=== PATIENT | female | born 1935 | race Caucasian/White ===

== ENCOUNTER 2017-08-16 14:17 | Inpatient (IN) | payer MEDICARE, OTHER ==
[~2017-08-16] VITALS: Ht 170.2 cm; Wt 60.5 kg
--- NOTE | ~2017-08-16 | HP ---
History And Physical [place] [id number] [facility] [place]. [address] NAME: GAGE STEARNS : 35 STATUS : ADM IN [facility]#: [id number] AGE: 81 ADM/REG DATE : 08/16/17 MR#: [id number] REPORT SERV DATE: 08/16/17 DICTATED BY: CLIFF HINDS DATE: 08/16/17 REPORT STATUS : Draft TRANSCRIBED BY: MODAriel DATE: 08/16/17 DATE OF ADMISSION: 08/16/2017 HISTORY OF PRESENT ILLNESS: This is an 81-year-old female who comes in for syncope. The patient has a history of foot infections, osteomyelitis, MSSA infection, and frequent UTIs. She had a bad one in April or May of this year in [facility], and she was then sent to an assisted living. She did well until she got discharged from the assisted living last Monday. The family took her home. Since she got home, they noticed that she was having diarrhea about four to five times a day, watery, but not bloody or black. The patient was getting weaker. They were worried about urinary tract infection as they said that her urine was starting to smell bad again. She denied any dysuria in the last two days, but because of her weakness and worry about urinary tract infection, they brought her to a walk-in clinic and while she was there, the patient felt that she is going to pass out, and she did and prior to that, they noted that she was having slurring of speech, and she turned white. There was no note of any seizures. She was out for about 30 seconds and at that time they noted the blood pressure was 97/50. The patient came about after 30 seconds. There was no slurring of speech anymore. The color came back. She was a little bit disoriented at first, but she became oriented rather quickly. She was then brought here. The patient feels better now and only complains of feeling lazy and weak. She denies any pain. There was no note of any nausea and vomiting. No hematuria. No cough or shortness of breath. No chest pains, palpitations. No fever, chills, or sweats. REVIEW OF SYSTEMS: The rest of the 14-point review of systems negative except as above. PAST MEDICAL HISTORY: Includes multiple surgeries on her both feet. She denies any diabetes as what was written in the past record. She has high blood pressure, atrial fibrillation, TIA in 2000, right knee surgery, cholecystectomy, hysterectomy, questionable dementia. ALLERGIES: SHE IS ALLERGIC TO DARVON, CODEINE, AND PENICILLIN G. MEDICATIONS: Her medications include aspirin, Aricept, Synthroid, lisinopril, metoprolol. FAMILY HISTORY: Positive for diabetes. Sister with cancer. Mom with heart disease and pulmonary embolism. SOCIAL HISTORY: The patient does not smoke, drink, or use recreational drugs. PHYSICAL EXAMINATION: GENERAL: The patient is alert and oriented x3, not in cardiopulmonary distress. VITAL SIGNS: Her vital signs include a blood pressure of 139/63, temperature 97.6, pulse rate of 75, respirations 20, saturation of 95% on room air. NECK: She has supple neck. No JVD or carotid bruits. No lymphadenopathy. HEENT: [place] conjunctivae. Anicteric sclerae. No pharyngeal erythema. LUNGS: Clear lungs. No rales, no wheezes. HEART: Irregular rate and rhythm. No murmurs appreciated. History And Physical [address] [address] NAME: GAGE STEARNS : 35 STATUS : ADM IN [facility]#: [id number] AGE: 81 ADM/REG DATE : 08/16/17 MR#: [id number] REPORT SERV DATE: 08/16/17 DICTATED BY: CLIFF HINDS DATE: 08/16/17 REPORT STATUS : Draft TRANSCRIBED BY: JOSEMANUEL DATE: 08/16/17 ABDOMEN: Positive bowel sounds. Soft, nontender. No masses. EXTREMITIES: Fair pulses. No edema. 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 NEURO EXAM: Nonlocalizing. LABORATORY DATA: Reveals a chemistry within normal limits. White count of 12.9. Urinalysis reveals a cloudy specimen with greater than 182 white blood cells, rare bacteria, positive nitrites, 0 red blood cell. EKG shows atrial fibrillation at 80, normal axis, possible old anterior septal infarct. No new EKG changes. ASSESSMENT: 1. Syncope. 2. Weakness. 3. Diarrhea. 4. Possible urinary tract infection. 5. Atrial fibrillation. 6. Hypertension. 7. History of dementia. PLAN: The patient's syncope is likely vasovagal or secondary to dehydration. She has been having diarrhea and was on recent antibiotics. We will check stool for C. difficile and start empiric Flagyl. I cannot rule out a possible UTI with her dirty urine, and that is collected by straight cath. I would check for the cultures first before starting her on antibiotics again, hydrate, and we will restart her medications. This has been explained to the patient in front of the daughter in-law, cousin and his , and they agreed and understood the plan. JULIA/JOSEMANUEL Cliff Hinds M.D. / [id number] CC: Bill Barone Jr, MD Cari Beth Page, M.D.
--- NOTE | ~2017-08-16 | DS ---
Discharge Summary [facility] [address] [place]. [address] NAME: GAGE STEARNS : 35 STATUS : DIS IN PAT#: [id number] AGE: 81 ADM/REG DATE : 08/16/17 MR#: [id number] REPORT SERV DATE: 08/19/17 DICTATED BY: POOJA DOMINGUEZ DATE: 08/19/17 REPORT STATUS : Draft TRANSCRIBED BY: MODL DATE: 08/19/17 ADMISSION DATE: 08/16/2017 DISCHARGE DATE: 08/19/2017 Ms. Stearns is an 81-year-old female with a history of atrial fibrillation, hypertension, who presented to the hospital with a complaint of syncope. For further details, please refer to H and P dictated by Dr. Navarrete on 08/16/2017. HOSPITAL COURSE: Upon presentation to the hospital, the patient was admitted on the Hospitalist Service for further management, etiology of her symptoms was likely due to dehydration, status post fluid resuscitation. The patient's symptoms significantly improved. She has remained hemodynamically stable. Her urinalysis was obtained which was positive. Urine culture positive for E. coli, sensitive to Ancef/Duricef. During her course, the patient has remained hemodynamically stable and has denied any symptoms. Given that the patient has had frequent episodes of UTI, resulting similar presentation with syncope and altered mental status, even though the patient is asymptomatic, decision was made to go ahead and treat. The patient has done well and tolerated therapy well. Plan at this point will be to transition the patient from IV antibiotic therapy to cefadroxil and the discharge patient home. Plan has been discussed with the patient who voices understanding and is agreeable with this plan. DISCHARGE DIAGNOSES: 1. Urinary tract infection. 2. Atrial fibrillation. 3. Hypothyroidism. 4. Hypertension. DISCHARGE MEDICATIONS: The patient's home medications were continued with the addition of cefadroxil 2 g p.o. daily for seven days. Home medications include 1. Aspirin 325 mg p.o. daily. 2. Aricept 10 mg p.o. daily. 3. Synthroid 88 mcg p.o. daily. 4. Lisinopril 10 mg p.o. daily. 5. Metoprolol 12.5 mg p.o. twice a day. CONSULTANTS: None. DISPOSITION: The patient will be discharged home. ACTIVITY: As tolerated. DIET: Regular diet. Greater than 30 minutes spent in discharging patient. Discharge Summary [place] [address] [facility] [address] NAME: GAGE STEARNS : 35 STATUS : DIS IN PAT#: [id number] AGE: 81 ADM/REG DATE : 08/16/17 MR#: [id number] REPORT SERV DATE: 08/19/17 DICTATED BY: POOJA DOMINGUEZ DATE: 08/19/17 REPORT STATUS : Draft TRANSCRIBED BY: JOSEMANUEL DATE: 08/19/17 MOUNA/JOSEMANUEL Pooja Dominguez MD / [id number] CC: MD Nia Murguia M.D.
[~2017-08-16 14:17] MED LIST: C25 PO; COUMADIN PO; COUMADIN3 MG PO; GLUCPH PO; K500 PO; LEVOTHYROXINE PO; LISINOPRIL PO; LOP25 PO; METFORMIN PO; METOPROLOL PO; PRIN10 PO; SIMVASTATIN PO; SYN88 PO; ZOCOR20 PO
[2017-08-16 15:36] LABS: BASOPHILS 0.2 %; BASOPHILS ABSOLUTE 0.02 10/3/uL (0.0-0.16); EOSINOPHILS 0.1 %; EOSINOPHILS ABSOLUTE 0.01 10/3/uL (0.0-0.53); HEMOGLOBIN 13.3 g/dL (12.0-16.0); IMMATURE GRANULOCYTES 0.2 %; IMMATURE GRANULOCYTES ABSOLUTE 0.03 10/3/uL (0.0-0.11); LYMPHOCYTES 5.8 %; LYMPHOCYTES ABSOLUTE 0.74 10/3/uL (0.67-4.30); MEAN CORPUSCULAR HEMOGLOB 29.2 pg (26.0-34.0); MEAN PLATELET VOLUME 10.2 fL (9.2-13.0); MONOCYTES 3.8 %; MONOCYTES ABSOLUTE 0.49 10/3/uL (0.21-1.20); NEUTROPHILS 89.9 %; NEUTROPHILS ABSOLUTE 11.57 10/3/uL (2.02-8.40); PLATELET COUNT 212 10/3/uL (150-400); RBC DISTRIBUTION WIDTH 14.1 % (12.0-16.0); RED CELL COUNT 4.56 10/6/uL (4.0-5.6)
[2017-08-16 15:37] LABS: ER CBC TAT 0 Hrs 05 Mins; HEMATOCRIT 41.4 % (36.0-48.0); MANUAL DIFF NO %; MEAN CORPUS HGB CONC 32.1 g/dL (32.0-36.0); MEAN CORPUSCULAR VOLUME 90.8 fL (80-100); WHITE BLOOD CELLS 12.9 10/3/uL (4.5-10.5)
[2017-08-16 15:45] LABS: INTERNATIONAL NORMAL RATI 1.2 UNITS (-); PARTIAL THROMBO TIME 24.1 SEC (22.5-37.2); PROTIME (NOT ORD) 14.6 SEC (12.0-14.5)
[2017-08-16 15:52] LABS: ALBUMIN 3.2 G/DL (3.5-5.0); BUN (BLOOD UREA NITROGEN) 22 MG/DL (6-23); CALCIUM, SERUM 8.5 MG/DL (8.5-10.4); CHEST PAIN PROFILE TAT 0 Hrs 20 Mins; CHLORIDE, SERUM 106 MMOL/L (96-112); CREATININE 1.07 MG/DL (0.55-1.02); DIRECT BILIRUBIN 0.1 MG/DL (0.0-0.4); GFR AFRICAN AMERICAN 56 ML/MIN (>=60); GFR NON AFRICAN AMERICAN 49 ML/MIN (>=60); GLUCOSE, SERUM 113 MG/DL (60-99); INDIRECT BILIRUBIN(NOT ORDER) 0.6 MG/DL (0.1-0.9); SGOT(AST) 20 U/L (5-40); SGPT(ALT) 15 U/L (5-65); SODIUM, SERUM 142 MMOL/L (135-148); TOTAL BILIRUBIN 0.7 MG/DL (0-1.2); TOTAL PROTEIN 6.6 G/DL (6.0-8.5); TROPONIN I <0.02 NG/ML (<0.05)
[2017-08-16 15:54] LABS: ALKALINE PHOSPHATASE 87 U/L (45-117); CO2 (CARBON DIOXIDE) 28 MMOL/L (24-34); POTASSIUM, SERUM 4.1 MMOL/L (3.5-5.3)
[2017-08-16 17:18] LABS: ASCORBIC ACID (UR NOT ORDER) NEG (NEG); BILIRUBIN, URINE NEGATIVE (NEG); ER URINALYSIS TAT 0 Hrs 27 Mins; KETONE, URINE NEGATIVE (NEG); LEUKOCYTE ESTERASE(NOT OR LARGE (NEG)
[2017-08-16 17:19] LABS: NITRITE (URINE) POS (NEG); WBC (NOT ORDERED) (RFLEX) > 182 (0-5)
[2017-08-16] MEDS ORDERED: LEVOTHYROXIN88 MCG PO (18:16)
[2017-08-16] MEDS ORDERED: ARICEPT10 PO (18:17)
[2017-08-16] MEDS ORDERED: PRIN10 PO (18:17)
[2017-08-16] MEDS ORDERED: ASAEC PO (18:17)
[2017-08-16] MEDS ORDERED: LOP25 PO (18:18)
[2017-08-16 21:18] LABS: PROCALCITONIN <0.05 ng/mL (<0.5)
[2017-08-17 04:43] LABS: BASOPHILS 0.4 %; BASOPHILS ABSOLUTE 0.03 10/3/uL (0.0-0.16); EOSINOPHILS 1.5 %; EOSINOPHILS ABSOLUTE 0.11 10/3/uL (0.0-0.53); HEMATOCRIT 37.7 % (36.0-48.0); HEMOGLOBIN 12.1 g/dL (12.0-16.0); IMMATURE GRANULOCYTES 0.3 %; IMMATURE GRANULOCYTES ABSOLUTE 0.02 10/3/uL (0.0-0.11); LYMPHOCYTES 19.7 %; MANUAL DIFF NO %; MEAN CORPUS HGB CONC 32.1 g/dL (32.0-36.0); MEAN CORPUSCULAR HEMOGLOB 28.6 pg (26.0-34.0); MEAN CORPUSCULAR VOLUME 89.1 fL (80-100); MEAN PLATELET VOLUME 10.2 fL (9.2-13.0); MONOCYTES 7.2 %; MONOCYTES ABSOLUTE 0.51 10/3/uL (0.21-1.20); NEUTROPHILS 70.9 %; NEUTROPHILS ABSOLUTE 5.05 10/3/uL (2.02-8.40); PLATELET COUNT 195 10/3/uL (150-400); RBC DISTRIBUTION WIDTH 14.4 % (12.0-16.0); RED CELL COUNT 4.23 10/6/uL (4.0-5.6); WHITE BLOOD CELLS 7.1 10/3/uL (4.5-10.5)
[2017-08-17 04:51] LABS: BUN (BLOOD UREA NITROGEN) 21 MG/DL (6-23); CALCIUM, SERUM 8.1 MG/DL (8.5-10.4); CHLORIDE, SERUM 109 MMOL/L (96-112); CO2 (CARBON DIOXIDE) 26 MMOL/L (24-34); GFR AFRICAN AMERICAN 70 ML/MIN (>=60); GFR NON AFRICAN AMERICAN 60 ML/MIN (>=60); POTASSIUM, SERUM 3.8 MMOL/L (3.5-5.3); SODIUM, SERUM 143 MMOL/L (135-148)
[2017-08-17 04:55] LABS: GLUCOSE, SERUM 82 MG/DL (60-99)
[2017-08-18 05:04] LABS: BASOPHILS 0.4 %; BASOPHILS ABSOLUTE 0.02 10/3/uL (0.0-0.16); EOSINOPHILS 1.4 %; EOSINOPHILS ABSOLUTE 0.08 10/3/uL (0.0-0.53); HEMATOCRIT 35.9 % (36.0-48.0); HEMOGLOBIN 11.5 g/dL (12.0-16.0); IMMATURE GRANULOCYTES 0.4 %; IMMATURE GRANULOCYTES ABSOLUTE 0.02 10/3/uL (0.0-0.11); LYMPHOCYTES 26.2 %; LYMPHOCYTES ABSOLUTE 1.49 10/3/uL (0.67-4.30); MEAN CORPUSCULAR HEMOGLOB 28.8 pg (26.0-34.0); MEAN PLATELET VOLUME 10.4 fL (9.2-13.0); MONOCYTES 8.3 %; MONOCYTES ABSOLUTE 0.47 10/3/uL (0.21-1.20); NEUTROPHILS 63.3 %; NEUTROPHILS ABSOLUTE 3.61 10/3/uL (2.02-8.40); PLATELET COUNT 185 10/3/uL (150-400); RBC DISTRIBUTION WIDTH 14.3 % (12.0-16.0); RED CELL COUNT 3.99 10/6/uL (4.0-5.6); WHITE BLOOD CELLS 5.7 10/3/uL (4.5-10.5)
[2017-08-18 05:05] LABS: MANUAL DIFF NO %
[2017-08-18 05:21] LABS: ALKALINE PHOSPHATASE 79 U/L (45-117); BUN (BLOOD UREA NITROGEN) 23 MG/DL (6-23); CALCIUM, SERUM 8.1 MG/DL (8.5-10.4); CHLORIDE, SERUM 111 MMOL/L (96-112); CO2 (CARBON DIOXIDE) 23 MMOL/L (24-34); CREATININE 1.14 MG/DL (0.55-1.02); GFR AFRICAN AMERICAN 52 ML/MIN (>=60); GFR NON AFRICAN AMERICAN 45 ML/MIN (>=60); GLUCOSE, SERUM 80 MG/DL (60-99); POTASSIUM, SERUM 4.4 MMOL/L (3.5-5.3); SGOT(AST) 14 U/L (5-40); SGPT(ALT) 13 U/L (5-65); SODIUM, SERUM 142 MMOL/L (135-148); TOTAL BILIRUBIN 0.4 MG/DL (0-1.2)
[2017-08-19 05:50] LABS: BASOPHILS 0.2 %; BASOPHILS ABSOLUTE 0.01 10/3/uL (0.0-0.16); EOSINOPHILS 2.1 %; HEMATOCRIT 33.9 % (36.0-48.0); HEMOGLOBIN 10.8 g/dL (12.0-16.0); IMMATURE GRANULOCYTES 0.4 %; IMMATURE GRANULOCYTES ABSOLUTE 0.02 10/3/uL (0.0-0.11); LYMPHOCYTES 25.3 %; MEAN CORPUS HGB CONC 31.9 g/dL (32.0-36.0); MEAN CORPUSCULAR HEMOGLOB 28.6 pg (26.0-34.0); MEAN CORPUSCULAR VOLUME 89.7 fL (80-100); MEAN PLATELET VOLUME 10.1 fL (9.2-13.0); MONOCYTES 9.5 %; MONOCYTES ABSOLUTE 0.45 10/3/uL (0.21-1.20); NEUTROPHILS 62.5 %; NEUTROPHILS ABSOLUTE 2.97 10/3/uL (2.02-8.40); PLATELET COUNT 155 10/3/uL (150-400); RBC DISTRIBUTION WIDTH 14.2 % (12.0-16.0); RED CELL COUNT 3.78 10/6/uL (4.0-5.6); WHITE BLOOD CELLS 4.8 10/3/uL (4.5-10.5)
[2017-08-19 05:51] LABS: MANUAL DIFF NO %
[2017-08-19 06:05] LABS: ALBUMIN 2.8 G/DL (3.5-5.0); ALKALINE PHOSPHATASE 70 U/L (45-117); CALCIUM, SERUM 8.1 MG/DL (8.5-10.4); CHLORIDE, SERUM 113 MMOL/L (96-112); CO2 (CARBON DIOXIDE) 22 MMOL/L (24-34); CREATININE 0.95 MG/DL (0.55-1.02); GFR AFRICAN AMERICAN 65 ML/MIN (>=60); GFR NON AFRICAN AMERICAN 56 ML/MIN (>=60); GLOBULIN 2.9 G/DL (2.5-4.1); GLUCOSE, SERUM 82 MG/DL (60-99); POTASSIUM, SERUM 3.9 MMOL/L (3.5-5.3); SGOT(AST) 16 U/L (5-40); SGPT(ALT) 11 U/L (5-65); SODIUM, SERUM 143 MMOL/L (135-148); TOTAL BILIRUBIN 0.7 MG/DL (0-1.2); TOTAL PROTEIN 5.7 G/DL (6.0-8.5)
[2017-08-19 06:07] LABS: BUN (BLOOD UREA NITROGEN) 18 MG/DL (6-23)
[2017-08-19] MEDS ORDERED: CEFADROXIL1 GM PO (17:46)
== END 2017-08-19 18:57 | disposition home or self-care (01) | DRG 690 ==
LOC: ER 14:17 → CDU1 18:13 → 6NO 18:55
PROVIDERS: Emergency Medicine; Hospitalist; Internal Medicine
DX: N39.0 Urinary tract infection, site not specified (principal); E86.0 Dehydration; F03.90 Unspecified dementia, unspecified severity, without behavioral disturbance, psychotic disturbance, mood disturbance, and anxiety; R00.1 Bradycardia, unspecified; R19.7 Diarrhea, unspecified; I10 Essential (primary) hypertension; E03.9 Hypothyroidism, unspecified; B96.20 Unspecified Escherichia coli [E. coli] as the cause of diseases classified elsewhere; Z87.440 Personal history of urinary (tract) infections; Z90.49 Acquired absence of other specified parts of digestive tract; Z88.5 Allergy status to narcotic agent; Z88.0 Allergy status to penicillin; Z79.82 Long term (current) use of aspirin
CPT/HCPCS: 80048; 80053; 80076; 81001; 82962; 83735; 84145; 84443; 84484; 85025; 85610; 85730; 87040; 87045; 87046; 87046-59; 87077; 87086; 87186; 87493; 87493-59; 87899; 87899-59; 89055; 93005; 96374; 97161-GP; 99285; A9270-GY; G8978-CJ-GP; G8979-CJ-GP; G8980-CJ-GP